=== PATIENT | male | born 1985 | race Caucasian/White ===

== ENCOUNTER → 2017-12-22 13:25 | Outpatient (CLI) | payer BC, SELFPAY ==
--- NOTE | 2017-12-22 13:32 | CT_ITS ---
CT sinus wo con CLINICAL INDICATION: Left-sided facial pain. Mandibular teeth not lining up ITS.REASON: FACIAL INJURY, JAW PAIN ORDERING PHYSICIAN: JEANE Jaimes PATIENT AGE: 32 years COMPARISON: None TECHNIQUE:Axial, sagittal, and coronal images are generated and reviewed without contrast FINDINGS: No fracture or dislocation is evident. TMJs are unremarkable. No mandibular fracture apparent. No evidence of TMJ dislocation. There is mild mucosal thickening of the maxillary sinuses. No sinus air-fluid level is evident. There is mild nasal septal deviation. Orbits are unremarkable. IMPRESSION: 1. No acute finding. No evidence of fracture. No evidence of the TMJ dislocation or subluxation 2. Mild maxillary sinus disease
== END ==
PROVIDERS: Family Provider Family Medicine; PCP Family Medicine; Visit Provider Physician Assistant
DX: S09.93XA Unspecified injury of face, initial encounter (principal); R68.84 Jaw pain
CPT/HCPCS: 70486

== ENCOUNTER 2019-03-30 14:46 | Observation (INO) ==
--- NOTE | 2019-03-30 16:23 | History & Physical Report ---
HPI HPI: Patient is a pleasant healthy 34-year-old white male referred directly from Dr. Warner's office as an add-on patient this afternoon for appendicitis. Patient had worked yesterday and was in his usual state of health until yesterday evening when he had gone to sleep. He then awoke from sleep with significant sharp cramping abdominal pain which seemed to be mostly in the right lower quadrant. He had some associated low-grade fevers. This persisted throughout the evening. Patient states that his had advised him to consider going to the emergency department yesterday evening but the patient declined. Due to the persistence of his pain he had presented to his primary care provider today. He was found to have a mild leukocytosis of 12,000. He underwent CT scan with contrast which revealed findings of acute appendicitis. Patient states the pain has been worse with movement and walking. [facility] History Medical History: Reports:: Gastroesophageal Reflux Disease(GERD) Denies:: Cancer, Diabetes Mellitus Type 1, Diabetes Mellitus Type 2, Internal Pacemaker, MRSA, Seizures *Have you ever received a pneumonia vaccine?: No *Have you received a flu vaccine this season?: Yes Other Medical History: Reports: Thyroid Disease. Denies: Blood Transfusion Reaction Other Surgeries: Yes: No Previous Surgery, Appendectomy. No: Pacemaker Amputation: No Fractures: No - *Social History Educational Level: Completed College Smoking Status: Never smoker Alcohol Intake: never Alcohol Intake Frequency:: 0-2 drinks per day *Occupational Status:: employed Housing: house Household Members: spouse *Travel in the last 8 weeks: None - Psychiatric History Expresses thoughts of harming self/others: None Suicide Plan Description: No Plan Family Hx:: No significant family history Review of Systems - Review of Systems Review of systems:: pertinent systems reviewed and negative unless documented below Meds Home Medications Medication Instructions Recorded Confirmed Type cholecalciferol (vitamin D3) 400 400 unit PO DAILY 11/30/17 03/30/19 History unit/5 mL oral liquid levothyroxine 25 mcg tablet 25 mcg PO DAILY 11/30/17 03/30/19 History multivit and minerals-ferrous 15 ml PO QDAY 11/30/17 03/30/19 History gluconate 9 mg iron/15 mL oral liquid omega-3 fatty acids 1,000 mg 1,000 mg PO QDAY 11/30/17 03/30/19 History capsule pantoprazole 20 mg tablet,delayed 20 mg PO QDAY 11/30/17 03/30/19 History release trazodone 100 mg tablet 100 mg PO QHS PRN 03/30/19 03/30/19 History Allergies Allergy/AdvReac Type Severity Reaction Status Date / Time No Known Allergies Allergy Verified 03/30/19 14:55 Exam Vital signs and Labs for Last 24 Hours: Temp Pulse Resp BP Pulse Ox 98.3 F 66 18 133/70 98 03/30/19 15:07 03/30/19 15:07 03/30/19 15:07 03/30/19 15:07 03/30/19 15:07 I & O for Last 24 hours: Intake & Output 03/28/19 03/29/19 03/30/19 03/31/19 11:59 11:59 11:59 11:59 Weight 210 lb - *Routine HEENT Exam Head: Present: normocephalic Eye: Present: EOMI, PERRL ENT: Present: mucous membranes moist - *Routine Neck Exam Present: supple. Absent: lymphadenopathy - *Routine Respiratory Exam Present: CTA bilaterally - *Routine Cardiovascular Exam Present: RRR - *Routine Abdominal Exam Present: soft, tenderness Comments: Tender in right lower quadrant with focal guarding - *Routine Extremities Exam Absent: cyanosis, clubbing, edema - *Routine Skin Exam Present: warm. Absent: rash - *Routine Neurological Exam Present: alert, oriented X3 - Detailed Eye Exam Eyelids: Left normal inspection Assessment and Plan - Assessment and plan all Dx Assessment and Plan for all problems:: Patient was seen and examined in the office. Imaging reviewed. He had evidence of acute appendicitis on CT scan and history. Arrangements were made for em ergent appendectomy.
--- NOTE | 2019-03-30 16:28 | Operative Note ---
Date of procedure: 03/30/19 Pre-op Diagnosis:: Acute appendicitis Post-op Diagnosis:: Same Procedure performed:: Laparoscopic appendectomy Surgeon:: Robbi Dixon MD CHIEF METEOROLOGIST:: Mychal Chambers Anesthesia: GETA Estimated blood loss (mL): 10 Clinical Note:: Patient is a pleasant healthy 34-year-old white male referred directly from Dr. Warner's office as an add-on patient this afternoon for appendicitis. Patient had worked yesterday and was in his usual state of health until yesterday evening when he had gone to sleep. He then awoke from sleep with significant sharp cramping abdominal pain which seemed to be mostly in the right lower quadrant. He had some associated low-grade fevers. This persisted throughout the evening. Patient states that his had advised him to consider going to the emergency department yesterday evening but the patient declined. Due to the persistence of his pain he had presented to his primary care provider today. He was found to have a mild leukocytosis of 12,000. He underwent CT scan with contrast which revealed findings of acute appendicitis. Patient states the pain has been worse with movement and walking. He was seen in the office and arrangements were made for appendectomy. Operative findings:: He had an acutely inflamed edematous somewhat indurated non-suppurative no nnecrotic appendicitis Operative note:: Consent was obtained and patient was taken to the operating room. He was given preoperative intravenous antibiotics. He was positioned in a supine position. General anesthesia was induced. His abdomen was prepped and draped in the standard surgical fashion after Mccall catheter was inserted. Subumbilical incision was made. While performing abdominal wall lift Veress needle was inserted and CO2 pneumoperitoneum was achieved to 15 mmHg. 12 mm optical trocar was inserted at the umbilicus. Intraperitoneal contents were visualized. The tip of the appendix was easily identified and found to be acutely inflamed. 5 mm trocar was inserted in the suprapubic location and an additional 5 mm trocar was inserted in the right upper abdomen. The appendix was grasped with an endoscopic Anu. The appendix was somewhat twisted upon itself and found to be inflamed with erythema, edema, and induration. The mesoappendix was ca refully divided with ABDI ultrasonic harmonic carmelina with care taken to coagulate the appendiceal artery in the process. Dissection was carried down to the appendiceal base. The appendix was divided at its base with an endoscopic RAFI linear cutting stapling device. The appendix was placed within an Endo Catch retrieval device and removed from the peritoneal cavity via the umbilical trocar site. Staple line was inspected for hemostasis and integrity. Limited irrigation was performed of the pericecal location, pelvis, and perihepatic space where there was some minor reactive fluid. Trochars were then removed as CO2 pneumoperitoneum was evacuated. Fascia at the umbilicus was closed with a 0 Vicryl [id number] suture. Local anesthetic was infiltrated. Skin incisions were closed with 4-0 Monocryl subcuticular fashion. Steri-Strips and dressings were applied. Condition: stable Disposition: PACU Specimens:: Appendix Complications:: None immediately apparent
--- NOTE | 2019-03-30 16:28 | Progress Note ---
[facility] Anesthesia Checklist - Structural Data Admitted From: Home Planned Operative Procedure/s: lap appy Consent for Planned Operative Procedure(s) Verified: Yes - Airway Assessment C-Spine Mobility Assessed: Yes TMJ Mobility Assessed: Yes Dentition: Good Dentition - Neurological Assessment Level of Consciousness: Awake, Alert, Appropriate - Anesthesia Plan Anesthesia Risk discussed: Yes Anesthesia Plan: Verified ASA Class: I Anesthesia Type: General [facility] History I have reviewed the patient's past medical history: Yes Medical History: Reports:: Gastroesophageal Reflux Disease(GERD) Denies:: Cancer, Diabetes Mellitus Type 1, Diabetes Mellitus Type 2, Internal Pacemaker, MRSA, Seizures *Have you ever received a pneumonia vaccine?: No *Have you received a flu vaccine this season?: Yes Other Medical History: Reports: Thyroid Disease. Denies: Blood Transfusion Reaction Other Surgeries: Yes: No Previous Surgery, Appendectomy. No: Pacemaker Amputation: No Fractures: No - *Social History Educational Level: Completed College Smoking Status: Never smoker Alcohol Intake: never Alcohol Intake Frequency:: 0-2 drinks per day *Occupational Status:: employed Housing: house Household Members: spouse *Travel in the last 8 weeks: None - Psychiatric History Expresses thoughts of harming self/others: None Suicide Plan Description: No Plan Family Hx:: No significant family history
--- NOTE | 2019-03-30 16:31 | Progress Note ---
[facility] Anesthesia Record Part I Intake, IV Amount: 1,400 Estimated blood loss (mL): 0 Urine output (mL): 200 Blood Pressure: 160/108 SaO2: 94 Pulse Rate: 60 Respiratory Rate: 12 Temperature: 98.2 F Patient is:: Awake, Stable Stable to PACU at:: 16:25
--- NOTE | 2019-03-30 16:32 | Progress Note ---
[facility] Anesthesia Record Part II Discharge Time: 16:55 Destination: floor PACU nurse assessment reviewed?: Yes Patient Condition:: Good Anesthesia Complications:: None Swallowing reflex intact?: Yes Cyanosis?: No
[2019-03-31 06:43] LABS: Basophils % 0.1 % (0.1-2.0); Hematocrit 38.9 % (42.0-52.0); Hemoglobin 13.5 g/dL (14.1-18.0); Lymphocytes # 1.1 K/mm3 (0.7-4.5); Lymphocytes % 9.7 % (10-50); Mean Corpuscular HGB Conc 34.8 g/dL (31.8-35.4); Mean Corpuscular Hemoglobin 29.8 pg (27.0-31.2); Mean Corpuscular Volume 85.8 fl (80-94); Mean Platelet Volume 8.3 fl (7.4-10.4); Monocytes # 0.7 K/mm3 (0.1-1.0); Neutrophils # 9.7 K/mm3 (1.8-7.8); Neutrophils % 84.2 % (37.0-80.0); Platelet Count 261 K/mm3 (142-424); Red Blood Count 4.54 M/mm3 (4.60-6.20); Red Cell Distribution Width 12.4 % (11.5-17.5); White Blood Count 11.6 K/mm3 (4.8-10.8)
--- NOTE | 2019-03-31 08:03 | Progress Note ---
Subjective Patient reports: feels better Exam Vital signs and Labs for Last 24 Hours: Temp Pulse Resp BP Pulse Ox 98.2 F 57 L 16 107/53 L 93 L 03/31/19 04:00 03/31/19 04:00 03/31/19 04:00 03/31/19 04:00 03/31/19 04:00 Laboratory Results - last 24 hr 03/30/19 : Urine Color Yellow, Urine Appearance Clear, Urine pH 5.5, Ur Specific [place] <= 1.005, Urine Protein Negative, Urine Glucose (UA) Negative, Urine Ketones Negative, Urine Blood Negative, Urine Nitrate Negative, Urine Bilirubin Negative, Urine Urobilinogen 0.2, Ur Leukocyte Esterase Negative, Urine WBC Occasional, Ur Squamous Epith Cells Occasional, Urine Bacteria Trace 03/31/19 06:11: WBC 11.6 H, RBC 4.54 L, Hgb 13.5 L, Hct 38.9 L, MCV 85.8, MCH 29.8, MCHC 34.8, RDW 12.4, Plt Count 261, MPV 8.3, Neut % (Auto) 84.2 H, Lymph % (Auto) 9.7 L, [place] % (Auto) 6.0, Eos % (Auto) 0.0 L, Baso % (Auto) 0.1, Neut # (Auto) 9.7 H, Lymph # (Auto) 1.1, [place] # (Auto) 0.7, Eos # (Auto) 0.0, Baso # (Auto) 0.0 I & O for Last 24 hours: Intake & Output 03/28/19 03/29/19 03/30/19 03/31/19 11:59 11:59 11:59 11:59 Intake Total 1999 / 1999 Output Total 1200 / 1200 Balance 800 / 800 Weight 207 lb 5 oz - *Routine Abdominal Exam Present: soft Progress Note: A&P Assessment and Plan for All Diagnoses:: DC Home
--- NOTE | 2019-03-31 08:09 | Discharge Summary ---
General - General Admission date:: 03/30/19 Discharge date: 03/31/19 HPI HPI: Patient is a pleasant healthy 34-year-old white male referred directly from Dr. Warner's office as an add-on patient this afternoon for appendicitis. Patient had worked yesterday and was in his usual state of health until yesterday evening when he had gone to sleep. He then awoke from sleep with significant sharp cramping abdominal pain which seemed to be mostly in the right lower quadrant. He had some associated low-grade fevers. This persisted throughout the evening. Patient states that his had advised him to consider going to the emergency department yesterday evening but the patient declined. Due to the persistence of his pain he had presented to his primary care provider today. He was found to have a mild leukocytosis of 12,000. He underwent CT scan with contrast which revealed findings of acute appendicitis. Patient states the pain has been worse with movement and walking. Surgery was contacted and he was seen urgently in the office. Arrangements were made for appendectomy. Hospital Course Hospital Course: Patient was taken to the operating room urgently at which time he underwent laparoscopic appendectomy. He was found to have an acutely inflamed appendix which was nonnecrotic and nonperforated. He did have some reactive fluid in the pelvis and in the perihepatic space. Please see operative dictation for complete details. Postoperatively he was admitted for inpatient recovery. He convalesced well. He was continued on perioperative intravenous Unasyn. He was given a full liquid diet the evening of surgery. The following morning he was given a bland breakfast and he tolerated all of this without difficulty. The following morning he felt better other than some incisional soreness. He was anxious to go home as he stated he was unable to sleep well in the hospital. Arrangements were made for discharge home. Objective Vital signs: Temp Pulse Resp BP Pulse Ox 98.2 F 57 L 16 107/53 L 93 L 03/31/19 04:00 03/31/19 04:00 03/31/19 04:00 03/31/19 04:00 03/31/19 04:00 Results Labs on day of discharge: Labs from last 24 hours 03/31/19 03/30/19 06:11 Unknown WBC 11.6 H RBC 4.54 L Hgb 13.5 L Hct 38.9 L MCV 85.8 MCH 29.8 MCHC 34.8 RDW 12.4 Plt Count 261 MPV 8.3 Neut % (Auto) 84.2 H Lymph % (Auto) 9.7 L [place] % (Auto) 6.0 Eos % (Auto) 0.0 L Baso % (Auto) 0.1 Neut # (Auto) 9.7 H Lymph # (Auto) 1.1 [place] # (Auto) 0.7 Eos # (Auto) 0.0 Baso # (Auto) 0.0 Urine Color Yellow Urine Appearance Clear Urine pH 5.5 Ur Specific [place] <= 1.005 Urine Protein Negative Urine Glucose (UA) Negative Urine Ketones Negative Urine Blood Negative Urine Nitrate Negative Urine Bilirubin Negative Urine Urobilinogen 0.2 Ur Leukocyte Esterase Negative Urine WBC Occasional Ur Squamous Epith Cells Occasional Urine Bacteria Trace Discharge Plan - Patient Discharge Instructions ACTIVITY: No heavy lifting DIET: advance to your usual diet Patient Instructions: How to Care for a Surgical Wound, DI for Appendicitis -- Adult, DI for an Appendectomy, DI for Surgical Site Infection - Follow up Plan Follow up with: Robbi Dixon MD [Staff Physician] - 04/16/19 Disposition: Home, Self-[facility] Medications: Home Medications Medication Instructions Recorded Confirmed Type cholecalciferol (vitamin D3) 400 400 unit PO DAILY 11/30/17 03/30/19 History unit/5 mL oral liquid levothyroxine 25 mcg tablet 25 mcg PO DAILY 11/30/17 03/30/19 History multivit and minerals-ferrous 15 ml PO QDAY 11/30/17 03/30/19 History gluconate 9 mg iron/15 mL oral liquid omega-3 fatty acids 1,000 mg 1,000 mg PO QDAY 11/30/17 03/30/19 History capsule pantoprazole 20 mg tablet,delayed 20 mg PO QDAY 11/30/17 03/30/19 History release trazodone 100 mg tablet 100 mg PO QHS PRN 03/30/19 03/30/19 History Hydrocod/Acet 5/325 mg [[place] 1 - 2 tab PO Q6HP PRN #21 tab 03/31/19 Rx 5/325mg tablet] Prescriptions/Medication Reconciliation: New Hydrocod/Acet 5/325 mg [[place] 5/325mg tablet] 1 - 2 tab PO Q6HP PRN #21 tab PRN Reason: Moderate Pain No Action levothyroxine 25 mcg tablet 25 mcg PO DAILY pantoprazole 20 mg tablet,delayed release 20 mg PO QDAY omega-3 fatty acids 1,000 mg capsule 1,000 mg PO QDAY cholecalciferol (vitamin D3) 400 unit/5 mL oral liquid 400 unit PO DAILY multivit and minerals-ferrous gluconate 9 mg iron/15 mL oral liquid 15 ml PO QDAY trazodone 100 mg tablet 100 mg PO QHS PRN PRN Reason: Sleep
--- NOTE | 2019-03-31 08:37 | Progress Note ---
Internal Medicine - PN: Subj *Date: 03/31/19 *Time: 08:35 Interval history: Patient is feeling well this morning status post appendectomy. He is anxious to go home and is tolerated a diet. Exam Vital signs and Labs for Last 24 Hours: Temp Pulse Resp BP Pulse Ox 97.9 F 73 15 123/53 L 96 03/31/19 08:00 03/31/19 08:00 03/31/19 08:00 03/31/19 08:00 03/31/19 08:00 Laboratory Results - last 24 hr 03/30/19 : Urine Color Yellow, Urine Appearance Clear, Urine pH 5.5, Ur Specific [place] <= 1.005, Urine Protein Negative, Urine Glucose (UA) Negative, Urine Ketones Negative, Urine Blood Negative, Urine Nitrate Negative, Urine Bilirubin Negative, Urine Urobilinogen 0.2, Ur Leukocyte Esterase Negative, Urine WBC Occasional, Ur Squamous Epith Cells Occasional, Urine Bacteria Trace 03/31/19 06:11: WBC 11.6 H, RBC 4.54 L, Hgb 13.5 L, Hct 38.9 L, MCV 85.8, MCH 29.8, MCHC 34.8, RDW 12.4, Plt Count 261, MPV 8.3, Neut % (Auto) 84.2 H, Lymph % (Auto) 9.7 L, [place] % (Auto) 6.0, Eos % (Auto) 0.0 L, Baso % (Auto) 0.1, Neut # (Auto) 9.7 H, Lymph # (Auto) 1.1, [place] # (Auto) 0.7, Eos # (Auto) 0.0, Baso # (Auto) 0.0 I & O for Last 24 hours: Intake & Output 03/28/19 03/29/19 03/30/19 03/31/19 11:59 11:59 11:59 11:59 Intake Total 2240 / 2240 Output Total 1200 / 1200 Balance 1040 / 1040 Weight 207 lb 5 oz - Constitutional no acute distress - *Routine Respiratory Exam Present: CTA bilaterally - *Routine Cardiovascular Exam Present: RRR - *Routine Abdominal Exam Present: soft, normoactive bowel sounds, tenderness (only around surgical sites) - *Routine Extremities Exam Absent: cyanosis, clubbing, edema Assessment and Plan (1) Appendicitis Current visit: Yes Status: Acute Category: Medical Code(s): K37 - Unspecified appendicitis (2) Status post appendectomy Current visit: Yes Status: Acute Category: Surgical Code(s): Z90.49 - Acquired absence of other specified parts of digestive tract - Assessment and plan all Dx Assessment and Plan for all problems:: The patient has been discharged by Dr. Dixon today and will follow-up with him in his office. Pain medication has been written by Dr. Dixon.
== END 2019-03-31 09:10 | disposition home or self-care (01) ==
LOC: 2ND 14:46 → OR 14:46
PROVIDERS: ADMIT Surgery; ATTEND Surgery
DX: K35.80 Unspecified acute appendicitis
CPT/HCPCS: 36415; 74178; 81001; 85025; 96374; G0378; J2405; J2710; Q9967

== ENCOUNTER → 2019-08-24 13:45 | Outpatient (CLI) | payer BC, SELFPAY ==
--- NOTE | 2019-08-24 13:51 | XR_ITS ---
PROCEDURE: XR HAND LT MIN 3V CLINICAL INDICATION: CELLULITIS OF FINGER LT HAND Pain and swelling COMPARISON: No exams were available for comparison FINDINGS: No fracture or dislocation. No lytic or blastic change. There is normal mineralization. The joint spaces are well-preserved. No significant degenerative/arthritic changes. No erosive changes evident. Other findings:None. IMPRESSION: No acute findings. Dictated by: Wes Segal MD 08/24/2019 16:14 Electronically signed by Wes Segal MD in [place] 08/24/2019 16:14
== END ==
PROVIDERS: PCP Family Medicine; Visit Provider Family Medicine
DX: L03.012 Cellulitis of left finger (principal)
CPT/HCPCS: 73130

== ENCOUNTER → 2019-12-27 07:48 | Outpatient (CLI) | payer OTHER, SELFPAY ==
--- NOTE | 2019-12-27 07:50 | MR_ITS ---
PROCEDURE: MR LUMBAR SPINE WO CON CLINICAL INDICATION: ACUTE LEFT SIDED LOW BACK PAIN Acute left-sided low back pain worse when standing, left leg pain and numbness COMPARISON: [id number] CT abdomen pelvis wo/w con from 03/30/2019 TECHNIQUE: Standard multiplanar multiecho sequences are performed without contrast. 3-D MIP and myelographic images are also rendered and reviewed FINDINGS: There is normal alignment. The spinal cord ends at the L1-L2 level. L1-L2, L2-L3, L3-L4 have an unremarkable appearance. L4-5: Mild facet hypertrophic change L5-S1: There is decrease in the disc space consistent with degenerative disc disease. There is a small left paracentral disc herniation with inferior extrusion which is compressing upon the left S1 nerve root causing left lateral recess narrowing and left-sided foraminal narrowing. Incidental note made of mild prominence of the renal pelves on both sides IMPRESSION: 1. Small left paracentral disc herniation with inferior extrusion at L5-S1 compressing upon the left S1 nerve root with associated degenerative disc disease. 2. Mild facet hypertrophic change L4-5 Dictated by: Wes Segal MD 12/28/2019 13:15 Electronically signed by Wes Segal MD in [place] 12/28/2019 13:15
== END ==
PROVIDERS: PCP Physician Assistant; Visit Provider Physician Assistant
DX: M54.42 Lumbago with sciatica, left side (principal)
CPT/HCPCS: 72148; 76376

== ENCOUNTER 2020-12-22 11:52 | Emergency (ER) | payer BC, SELFPAY ==
[2020-12-22 12:08] VITALS: BP 133/75; PULSE 84; RESP 20; TEMP 36.8; O2SAT 97; BMI 28.5
--- NOTE | 2020-12-22 12:22 | HMH.EDUTC ---
[facility] [place] Clinical Impression: Sinusitis Qualifiers: Sinusitis location: unspecified location Chronicity: acute Recurrence: non-recurrent Qualified Code(s): J01.90 - Acute sinusitis, unspecified Otitis media Qualifiers: Otitis media type: suppurative Chronicity: acute Laterality: bilateral Recurrence: non-recurrent Spontaneous tympanic membrane rupture: without spontaneous rupture Qualified Code(s): H66.003 - Acute suppurative otitis media without spontaneous rupture of ear drum, bilateral Disposition: Home Health Service Condition on Discharge: Good Instructions: DI for Sinusitis Additional Instructions: Drink plenty of fluids. Take tylenol for pain or fever. Return if you begin to have difficulty breathing. Follow up with your regular doctor. GO TO THE ER FOR ANY WORSENING SYMPTOMS Prescriptions: predniSONE [Deltasone 10mg tablet] 10 mg PO BID 4 Days #8 tab [facility]: [id number] Azithromycin [Z-Jonathon 250mg Tab*] 250 mg PO UD DOSE PK #6 tab Transmission Status: [id number] Referrals: Ugo Kirby MD [Primary Care Provider] - Forms: Work/School Release Time of Disposition: 12:27 Medical Decision Making - Medical Records Medical records reviewed: No: I reviewed the patient's medical records. - Horace Inquiry Pt receiving controlled substance: No Vital Signs: 12/22/20 12:08 12/22/20 12:29 Temperature 98.2 F 98.2 F Temperature Source Oral Pulse Rate 84 Pulse Rate [Left Brachial] 84 Respiratory Rate 20 20 Blood Pressure 133/75 Blood Pressure [Left Arm] 133/75 Blood Pressure Mean [Left Arm] 94 Blood Pressure Source [Left Arm] Automatic Cuff Blood Pressure Position [Left Arm] Sitting 02 Sat by Pulse Oximetry 97 Oxygen Delivery Method Room Air Orders (Tests/Meds): ORDERS Category Date Time Status Covid-19 Nasal PCR Sendout [facility] Stat Lab 12/22/20 12:25 [place] [facility] [place] - General Stated complaint: possible L ear infection Time Seen by Provider: 12/22/20 12:22 Mode of Arrival: Ambulatory Source of Information: Patient Limitations: No Limitations Description of Symptoms (Recalled from Triage Doc. by RN): PATIENT C/O NASAL CONGESTION WITH INTERMITTEN EAR PAIN X 2 DAYS. STATES HE BELIEVES IT IS A SINUS INFECTION HEENT Symptoms (Recalled from RN notes): Yes Resp Symptoms (Recalled from RN notes): No Skin Symptoms (Recalled from RN notes): No MS Symptoms (Recalled from RN notes): No Functional Status (Recalled from RN notes): WNL - History of Present Illness Provider Complaint: He c/o left ear pain and sinus pressure for the past 3 days. He denies any covid-19 exposure. He denies any fever/chills/body aches. He states that he usually gets a sinus infection this time every year. - Related Data Home Medications Medication Instructions Recorded Confirmed pantoprazole 20 mg tablet,delayed 20 mg PO QDAY 11/30/17 12/22/20 release Previous Rx's Medication Instructions Recorded Azithromycin [Z-Jonathon 250mg Tab*] 250 mg PO UD DOSE PK #6 tab 12/22/20 predniSONE [Deltasone 10mg tablet] 10 mg PO BID 4 Days #8 tab 12/22/20 Allergies Allergy/AdvReac Type Severity Reaction Status Date / Time No Known Allergies Allergy Verified 09/12/19 12:08 - Worker's Comp Is this a Worker's Comp case?: No [facility] History - Hepatitis A Screen Drug use history?: No High risk sexual behaviors?: No History of sexually transmitted infection?: No Currently employed?: No Childcare worker?: No Do you have indoor plumbing?: Yes Do you have electricity?: Yes Attestation statement:: This patient has been screened for Hepatitis A risk factors. I have reviewed the patient's past medical history: Yes Medical History: Reports:: Gastroesophageal Reflux Disease(GERD) Denies:: Cancer, Diabetes Mellitus Type 1, Diabetes Mellitus Type 2, Internal Pacemaker, MRSA, Seizures Other Medical History: Reports: Thyroi
[2020-12-22 12:29] VITALS: BP 133/75; PULSE 84; RESP 20; TEMP 36.8; O2SAT 97
[2020-12-23 10:36] LABS: Covid-19 Nasal PCR Sendout P&C Negative
== END 2020-12-22 12:35 | disposition home health service (06) ==
PROVIDERS: Emergency Provider Nurse Practitioner Family; PCP Family Medicine
DX: Z20.822 Contact with and (suspected) exposure to COVID-19 (principal); J01.90 Acute sinusitis, unspecified; H66.003 Acute suppurative otitis media without spontaneous rupture of ear drum, bilateral; K21.9 Gastro-esophageal reflux disease without esophagitis
CPT/HCPCS: 99202; G0463; U0004